=== PATIENT | female | born 1950 | race Caucasian/White ===

== ENCOUNTER 2018-02-12 12:42 | Day surgery (SDC) | payer MEDICARE, OTHER ==
[~2018-02-12] VITALS: Ht 162.6 cm; Wt 78.5 kg
--- NOTE | ~2018-02-12 | OR ---
[facility] [address] [place], [place] [address] Draft DATE OF OPERATION: 02/12/2018 SURGEON: Colt Blum MD PREOPERATIVE DIAGNOSIS: History of hyperplastic polyp of rectum in 2009. POSTOPERATIVE DIAGNOSES: 1. Small polyp of cecum (excised procedure). 2. Internal hemorrhoids. PROCEDURE: Total colonoscopy to cecum with cold morcellation polypectomy x1. ANESTHESIA: Intravenous sedation fentanyl 150 mcg, Versed 7 mg. INDICATION: This 67-year-old white woman is a patient of Dr. Mccann and known to me from the past having undergone colonoscopy in 2009, at which time a hyperplastic polyp was excised of the rectum. She is generally symptom-free currently. She is admitted to undergo colonoscopy. She understands the risks of bleeding, infection, and perforation. FINDINGS: The prep was good. Complete colonoscopy was undertaken to the cecum. A small polyp was noted of the distal cecum, which was excised with cold morcellation technique. Internal hemorrhoidal changes were noted as well. The remaining colon was normal. DESCRIPTION OF PROCEDURE: The patient was brought to the endoscopy suite and placed in lateral decubitus position given intravenous sedation to the point of slurred speech and nystagmus. Digital rectal examination was normal. An Olympus video colonoscope was passed in the rectum and manipulated throughout the colon ultimately intubating the cecum itself. The ileocecal valve and appendiceal orifice were normal. Upon withdrawal of scope, the distal cecum showed a small polyp. This was excised with cold morcellation technique. The remaining colon was examined thoroughly and showed no sign of abnormality. Retroflexed view was normal as well except for internal hemorrhoidal changes. Hemorrhoidal changes were noted upon withdrawal of scope was well. The scope was removed and the patient was taken to recovery room in good condition. PATIENT NAME: MICHAEL DAVIS OPERATIVE REPORT DATE OF : 46 REPORT #: [id number] PHYSICIAN: COLT BLUM MD PCP: TIMMY MCCANN DO REPORT IS CONFIDENTIAL AND NOT TO BE RELEASED WITHOUT AUTHORIZATION [facility] [address] [facility] [place], [place] [address] Draft CONCLUDING DIAGNOSES: Small polyp, cecum, and internal hemorrhoids. PLAN: Repeat colonoscopy in 3 years. Recommend high-fiber diet. If problems, she will let me know. She will return to the ongoing care of Dr. Mccann. MD LEONARD Hernandez/MODL /[id number] cc: Dr. Mccann Copies: ~ PATIENT NAME: MICHAEL DAVIS OPERATIVE REPORT DATE OF : 46 REPORT #: [id number] PHYSICIAN: COLT BLUM MD PCP: TIMMY MCCANN DO REPORT IS CONFIDENTIAL AND NOT TO BE RELEASED WITHOUT AUTHORIZATION
[~2018-02-12 12:42] MED LIST: BIOTIN5000 MC1 SL; CELECOXIB200 MG PO; CITALOPRAM HBR20 MG PO; CO Q-10100 MG PO; DICYCLOMINE HCL20 MG PO; FISH OIL PEARL1 EAC1 PO; GINKGO BILOBA120 M1 PO; GLUCOSAMINE-MS1 EACH PO; LEVOTHYROXINE50 MCG PO; LOVASTATIN40 MG PO; ONE DAILY WOME1 EACH PO; TOPROL XL25 MG PO; VIACTIV SOFT C1 EACH PO; VITAMIN C500 M1 PO; VITAMIN D31000 UNIT PO
--- NOTE | 2018-02-12 14:26 | NUR ---
02/12/18 1426 Marleny Plascencia 1414 PT ARRIVED IN PACU SLEEPY WITH NO C/O'S. ABD SOFT. OXYGEN DECREASED TO 2L VIA NC, WITH SATS 100%. 1420 OXYGEN DECREASED TO 1L VIA NC WITH SATS 100%. 1425 OXYGEN DC'D. SATS 100% ON RA.
== END 2018-02-12 15:10 | disposition home or self-care (01) ==
LOC: DS 12:42 → OPS 12:42 → DS 14:00 → OPS 14:00
PROVIDERS: Surgery
PROC: 0DBH8ZZ Excision of Cecum, Via Natural or Artificial Opening Endoscopic (ICD-10-PCS; principal; 2018-02-12 14:00)
DX: Z12.11 Encounter for screening for malignant neoplasm of colon (principal); D12.0 Benign neoplasm of cecum; K64.8 Other hemorrhoids; E03.9 Hypothyroidism, unspecified; Z88.5 Allergy status to narcotic agent; Z86.010 Personal history of colon polyps; Z98.890 Other specified postprocedural states; Z85.3 Personal history of malignant neoplasm of breast
CPT/HCPCS: 99153; G0500; J2250; J3010; J7120

== ENCOUNTER 2022-10-21 21:26 | Observation (INO) | payer MEDICARE, OTHER ==
[~2022-10-21] VITALS: Ht 162.6 cm; Wt 90.0 kg
--- OUTSIDE RECORDS SUMMARY | 2022-10-21 21:28 | XMS ---
PreManage Notification: MICHAEL DAVIS Security Sanitation Associate Events No recent Security Events currently on file CRITERIA MET - [facility] - 2 Visits in 30 Days CARE PROVIDERS DARYL GIORDANO Physician [employer] Rep[employer]r Helper Current PHONE: [phone] Bebe has no Care Guidelines for this patient. E.Jesi VISIT COUNT (12 MO.) [address] [place] [address] Natty Joseph 1 [facility] TOTAL 2 NOTE: Visits indicate total known visits. ED/UCC VISIT TRACKING (12 MO.) 10/21/2022 21:27 BETITO Bcuk TYPE: Emergency COMPLAINT: - UNRESPONSIVE 10/19/2022 13:32 [facility] Opal RODNEY TYPE: Emergency DIAGNOSES: - Syncope - Candidal stomatitis - Adverse effect of antineoplastic and immunosuppressive drugs, initial encounter - Agranulocytosis secondary to cancer chemotherapy - Weakness - Fall INPATIENT VISIT TRACKING (12 MO.) No inpatient visits to display in this time frame [email or web address]
[2022-10-21] MEDS ORDERED: NYSTATIN100000 UN1 PO (23:55)
[2022-10-21] MEDS ORDERED: AMLODIPINE BES2.5 MG PO (23:56)
[2022-10-21] MEDS ORDERED: LORAZEPAM1 MG PO (23:56)
[2022-10-21] MEDS ORDERED: HYDROMORPHONE HC4 MG PO (23:57)
[2022-10-21] MEDS ORDERED: MEMANTINE HCL10 MG PO (23:57)
[2022-10-21] MEDS ORDERED: ESCITALOPRAM OX10 MG PO (23:57)
[2022-10-21] MEDS ORDERED: ZOLPIDEM TART12.5 MG PO (23:57)
--- NOTE | 2022-10-22 16:39 | NUR ---
PT TRANSFERED TORM 121 VIA STRETCHER. UNRESPONSIVE. PT FAMILY AT BEDSIDE. ORDERED COMFORT CART FROM [employer] FOR FAMILY. EXPLAINED PAIN MEDICATION SCHEDULE TO FAMILY. FAMILY DENY NEEDS AT THIS TIME. CALL LIGHT IN REACH OF FMAILY.
--- NOTE | 2022-10-22 16:44 | NUR ---
ASSESSMENT COMPLETED. PT UNRESPONSIVE TO TOUCH. APPEAR COMFORTABLE AT THIS TIME, RELAXED FACE AND EXTRMEITIES. APNEIC BREATHING NOTED. FAMILY EDUCATED AND UPDATED ON PLAN OF CARE, VERBALIZED UNDERSTANDING.
--- NOTE | 2022-10-22 17:32 | NUR ---
PT CONTINUES TO BE UNRESPONSIVE, APPEARS COMFORTABLE, LABORED BREATHING WITH APENIC PERIODS NOTED. FAMILY AT BEDSIDE. PROVIDED CHAIRS TO FAMILY. FAMILY DECLINED DESIRE FOR SPIRITUAL CARE AT THIS TIME. FAMILY DENIES FURTHER NEEDS AT THIS TIME.
--- NOTE | 2022-10-22 19:05 | NUR ---
REPORT RECEIVED FROM SILVIA AVILA. PT LAYING IN BED WITH EYES CLOSED. RR LABORED. FAMILY AT BEDSIDE. FAMILY REPORTS NO NEEDS AT THIS TIME.
--- NOTE | 2022-10-22 20:35 | NUR ---
PT REPOSITIONED WITH HELP OF FAMILY. NO OTHER NEEDS AT THIS TIME FOR PT OR FAMILY.
--- NOTE | 2022-10-22 21:05 | NUR ---
IN TO ROUND ON PT AND FAMILY. ASSESSMENT COMPLETE. LUNG SOUNDS MOIST THROUGHOUT. SECRETIONS NOTED FROM MOUTH AND NOSE. SUCTION PROVIDED. APENIC PERIODS NOTED, IRREGULAR RR. ORAL CARE PROVIDED, FOLLOWED WITH SUCTION. CHAP STICK APPLIED. HEART TONES DISTANT, TACHYCARDIC. PT UNRESPONSIVE WHEN ADDRESSED AND TOUCHED. ASKED IF HE THINKS PT IS COMFORTABLE OR IF HE WOULD LIKE PRN PAIN MEDICATION ADMINISTERED, STATES "GIVE HER SOME PAIN MEDICATION." PRN MORPHINE ADMINISTERED, SEE MAR. DAUGHTER REQUESTING WATER, WATER PROVIDED. FAMILY DENIES ANY OTHER NEEDS AT THIS TIME. CALL LIGHT IN REACH. , BROTHER, [id number] AND DAUGHTER IN ROOM AT BEDSIDE.
--- NOTE | 2022-10-22 22:54 | NUR ---
IN TO ROUND ON PT AND FAMILY. PT LAYING IN BED WITH EYES CLOSED. IRREGULAR RR NOTED. PT UNRESPONSIVE TO VOICE OR TOUCH. FAMILY DENIES ANY NEEDS AT THIS TIME.
--- NOTE | 2022-10-23 00:02 | NUR ---
IN TO ROUND ON PT AND FAMILY. PT LAYING IN BED APPEARS COMFORTABLE. STATES "SHE APPEARS COMFORTABLE" AND DECLINES MORPHINE WHEN OFFERED. IRREGULAR RR NOTED. FAMILY REPORTS NO OTHER NEEDS AT THIS TIME.
--- NOTE | 2022-10-23 00:33 | NUR ---
IN WITH SILVIA ANTONY TO TURN PT. IRREGULAR AND APNEIC RR NOTED. PILLOW PLACED UNDER PTs LEFT HIP. AFTER TURNING PT SILVIA ANTONY TALKING WITH FAMILY. LONGER APNEIC PERIODS NOTED. PERIOD OF TIME WHERE NO BREATH NOTED. THIS RN AND SILVIA ANTONY LISTENED FOR HEART SOUNDS, NONE NOTED. [id number] RN CALLED DR. JACKSON TO NOTIFY.
--- NOTE | 2022-10-23 01:40 | NUR ---
, DAUGHTER, BROTHER, AND [id number] AT BEDSIDE. TALKED OF LIFE WITH PATIENT AND THE MEMORIES THEY WILL HOLD ON TO. INDICATED THEY HAVE A STRONG EPIFANIO. EXHIBITED CLOSENESS AND SUPPORT OF ONE-ANOTHER. WE TALKED BRIEFLY OF GRIEF A PROCESS THAT IS UNIQUE TO EACH INDIVIDUAL. I OFFERED PRAYER OF COMMENDATION FOR PT AND OF PEACE AND COMFORT FOR FAMILY. REQUESTED [employer]. SPECIFICALLY ASKED THAT [place] R[employer] NOT BE REMOVED. ALL PERSONAL BELONGINGS, INCLUDING [employer] RING WENT WITH THE BODY TO THE MORTUARY. MORTUARY CALLED AT [phone]
--- NOTE | 2022-10-23 01:45 | NUR ---
THIS RN AND SILVIA ANTONY IN ROOM TO PERFORM TERELL CARE AND REMOVE PERIPHERAL AND CENTRAL LINES. IV IN RIGHT AND LEFT WRIST REMOVED WNL. IJ REMOVED WNL. WYNN CATHETER REMOVED. TERELL CARE PROVIDED. SUCTIONED MOUTH SECRETIONS WERE NOTED.
--- NOTE | 2022-10-23 07:53 | EKG ---
[facility] [address] [facility] [place] [address] Signed Sinus tachycardia Incomplete right bundle branch block Borderline ECG No previous ECGs available Confirmed by ASIM JACKSON MD ([id number]) on 10/23/2022 7:53:13 AM Electronically Signed By: ASIM JACKSON MD 10/23/22 075 PATIENT NAME: MICHAEL DAVIS Electrocardiogram DATE OF : 46 PHYSICIAN: ASIM JACKSON MD REPORT #: [id number] REPORT IS CONFIDENTIAL AND NOT TO BE RELEASED WITHOUT AUTHORIZATION
== END 2022-10-23 01:10 ==
LOC: ED 21:26 → MS 21:28 → ED 10-22 15:42 → MS 10-23 01:10
PROVIDERS: ADMIT Internal Medicine; ATTEND Internal Medicine
DX: J96.01 Acute respiratory failure with hypoxia (principal); C34.90 Malignant neoplasm of unspecified part of unspecified bronchus or lung; C79.9 Secondary malignant neoplasm of unspecified site; Z85.3 Personal history of malignant neoplasm of breast; Z88.5 Allergy status to narcotic agent; Z20.822 Contact with and (suspected) exposure to COVID-19; Z51.5 Encounter for palliative care
CPT/HCPCS: 31500; 36415; 36600; 51702; 70450; 71045; 80053; 81001; 82803; 83605; 83735; 84484; 85025; 87502; 93005; 93010; 94002; 94760; 94799; 96375; 96376; 99285-25; G0378; G0480; J2270; J2704; J7030; J7121; U0003